=== PATIENT | female | born 1995 | race Caucasian/White ===

== ENCOUNTER → 2016-12-07 | Outpatient (CLI) | payer BC ==
[~2016-12-07] MED LIST: GADAVIST IV PRN
--- NOTE | 2016-12-07 12:30 | DIAGNOSTIC IMAGING REPORT ---
L INJECTION HIP PRE MRI CLINICAL HISTORY: 21 years-old Female presenting with B/L HIP PAIN. COMPARISON: 11/26/2016. PROCEDURE: The risks, benefits, and alternatives to the procedure were discussed with the patient. Written informed consent was obtained. The patient was placed supine on the fluoroscopy table, and a left hip injection was performed under fluoroscopic guidance. The area was prepped and draped in the usual sterile fashion. The skin and soft tissues anesthetized with local 1% lidocaine. The left hip joint was accessed utilizing a 22-gauge needle, and approximately 8 cc of a mixture of gadolinium contrast, Optiray 300, and saline was injected into the joint space under fluoroscopic guidance. There was normal distention of the capsule. Subsequently, a 4 mL mixture containing 3 mL of 1% lidocaine and 1 mL of methylprednisolone was injected into the joint. The procedure was well tolerated without immediate complication. The patient was then transferred to MRI for MR arthrography. Fluoroscopy dosage (mGy): Not available. Fluoroscopy time: 25 seconds. Number of fluoroscopic spot images: 0. IMPRESSION: Successful injection of the left hip under fluoroscopic guidance. Electronically signed by: Ermias Becerra M.D. 12/07/2016 12:29 PM Dictated Date/Time: 12/07/2016 12:23 PM
--- NOTE | 2016-12-07 12:31 | DIAGNOSTIC IMAGING REPORT ---
R INJECTION HIP PRE MRI CLINICAL HISTORY: 21 years-old Female presenting with B/L HIP PAIN. COMPARISON: None. PROCEDURE: The risks, benefits, and alternatives to the procedure were discussed with the patient. Written informed consent was obtained. The patient was placed supine on the fluoroscopy table, and a right hip injection was performed under fluoroscopic guidance. The area was prepped and draped in the usual sterile fashion. The skin and soft tissues anesthetized with local 1% lidocaine. The right hip joint was accessed utilizing a 22-gauge needle, and approximately 8 cc of a mixture of gadolinium contrast, Optiray 300, and saline was injected into the joint space under fluoroscopic guidance. There was normal distention of the capsule. Subsequently, a 4 mL mixture containing 3 mL of 1% lidocaine and 1 mL of methylprednisolone was injected into the joint. The procedure was well tolerated without immediate complication. The patient was then transferred to MRI for MR arthrography. Fluoroscopy dosage (mGy): Not available. Fluoroscopy time: 21 seconds. Number of fluoroscopic spot images: 0. IMPRESSION: Successful injection of the right hip under fluoroscopic guidance. Electronically signed by: Ermias Becerra M.D. 12/07/2016 12:29 PM Dictated Date/Time: 12/07/2016 12:28 PM
--- NOTE | 2016-12-07 13:29 | DIAGNOSTIC IMAGING REPORT ---
R LOWER EXTREMITY JOINT W/ CLINICAL HISTORY: 21 years-old Female presenting with B/L HIP PAIN. TECHNIQUE: Multisequence, multiplanar MR imaging of the right hip was performed after the administration of intra-articular contrast. IV contrast: None. COMPARISON: Correlation made to MR of the left hip performed the same day. FINDINGS: Localizer images: Unremarkable. No bony edema. No bony edema in the pubic symphysis. No fluid along the superior inferior pubic rami. Minimal increased signal intensity within the anterior superior labrum suggesting fraying (series 4 images 8 and 9). No focal labral tear. Capsular ligaments intact. Normal distention of the joint capsule. Articular cartilage and joint space intact. Normal muscle bulk and signal intensity. Limited intrapelvic evaluation demonstrates a normal uterus and right ovary. IMPRESSION: Minimal increased signal within the anterior superior labrum suggestive of fraying. No focal labral tear. No other abnormality appreciated. Electronically signed by: Ermias Becerra M.D. 12/07/2016 1:27 PM Dictated Date/Time: 12/07/2016 12:29 PM
--- NOTE | 2016-12-07 13:34 | DIAGNOSTIC IMAGING REPORT ---
L LOWER EXTREMITY JOINT W/ CLINICAL HISTORY: 21 years-old Female with B/L HIP PAIN. Acute bilateral hip pain with history of prior surgery COMPARISON: Dr. Darrell Preeyra that reading hockey FLAIR bilateral mammograms TECHNIQUE: Multiplanar, multi sequence MRI of the left hip was performed following the intra-articular administration of solution containing 0.1 mL Gadavist. FINDINGS: Mild micrometallic artifact is noted within the region of the left tensor fascia prema musculature and also adjacent to the anterosuperior acetabulum. LABRUM: Susceptibility artifact adjacent to the anterosuperior labrum suggests prior labral repair. Screw tracks within the anterior superior acetabulum are also noted. These findings suggest prior labral repair. There is minimal intermediate T2 signal noted involving anterosuperior labrum as seen on image 7 of series 3 without definite re-tear identified. Superior labrum is mildly diminutive. No chondrolabral separation or paralabral cyst identified. BONE MARROW: Bone marrow signal is within normal limits. No evidence of avascular necrosis, fracture or transient osteoporosis. BURSAE: There is no evidence for iliopsoas or trochanteric bursitis. HIP JOINT: The cartilage overlying the acetabulum and femoral head is intact. There is no evidence for femoral-acetabular or ischiofemoral impingement syndrome. No intraarticular loose body is evident. MUSCLES: Muscular signal and morphology is within normal limits. SCIATIC NERVE: The morphology and signal characteristics of the sciatic nerve appear normal. IMPRESSION: 1. Evidence of prior anterior superior labral repair. Mild intermediate T2 signal of the anterosuperior labrum is likely postoperative without definite re-tear, chondrolabral separation or paralabral cyst identified. 2. No acute fracture, focal bone marrow or muscular edema identified. 3. No evidence of bursitis. The above report was generated using voice recognition software. It may contain grammatical, syntax or spelling errors. Electronically signed by: Noah Kearns M.D. 12/07/2016 1:33 PM Dictated Date/Time: 12/07/2016 1:16 PM
== END | disposition home or self-care (01) ==
LOC: C.MRIBC 10:10
PROVIDERS: ATTEND Physical Medicine & Rehabilitation Sports Medicine
DX: M25.552 Pain in left hip (principal); M25.551 Pain in right hip